=== PATIENT | female | born 1980 | race Caucasian/White ===

== ENCOUNTER → 2017-04-03 | Outpatient (CLI) | payer OTHER | LOC: M SMT 15:39 | PROVIDERS: ATTEND Advanced Practice Midwife | DX: Z13.79 Encounter for other screening for genetic and chromosomal anomalies (principal) ==

== ENCOUNTER → 2017-04-12 | Outpatient (CLI) | payer OTHER | LOC: M LAB 16:29 | PROVIDERS: ATTEND Advanced Practice Midwife | DX: Z13.79 Encounter for other screening for genetic and chromosomal anomalies (principal) ==

== ENCOUNTER → 2017-04-14 | Outpatient (CLI) | payer OTHER ==
--- NOTE | 2017-04-14 15:17 | REP ---
Clinical: Anatomical evaluation. Comparison: None . Findings: Examination demonstrates a single live intrauterine in transverse (head to maternal left) presentation. motion is identified by technologist. Placenta is noted anteriorly and grade zero with evidence for placenta. Amniotic fluid volume is normal. Cervix measures 4.0 cm in length and appears closed. No evidence for nuchal cord. Gestational age by LMP 19 weeks 0 days with JAE 09/08/2017 . Gestational age by current measurements 18 weeks 1 day with JAE 09/14/2017 . FHR equals 144 beats per minute. BPD 4.2 cm 18 weeks 4 days HC 15.0 cm 18 weeks 1 day AC 12.3 cm 18 weeks 0 days FL 2.7 cm 18 weeks 1 day HL 2.6 cm 18 weeks 1 day HC/AC ratio 1.22 Estimated weight 224 grams ( 16th percentile). Anatomical assessment demonstrates normal structures including cranium, cavum, cerebellum/posterior fossa, facial features, lungs, four-chamber heart/ventricular outflow tracts, diaphragm, stomach, cord insertion/three-vessel cord, kidneys/bladder, and upper extremities. Limited evaluation of the spine and lower extremities due to positioning. Small choroid plexus cysts. Impression: 1. Single live intrauterine in oblique presentation. 2. Anterior placenta with placenta previa noted. 3. Limited evaluation of the spine and lower extremities along with small choroid plexus cysts may warrant reevaluation and follow-up. Signed by Tony Ocasio MD 04/14/2017 03:09 P
== END ==
LOC: M SMT 13:18 → EDUNIT# 13:30
PROVIDERS: ATTEND Advanced Practice Midwife
DX: O09.512 Supervision of elderly primigravida, second trimester (principal); Z3A.18 18 weeks gestation of pregnancy

== ENCOUNTER → 2017-05-16 | Outpatient (CLI) | payer OTHER ==
--- NOTE | 2017-05-16 15:39 | REP ---
Clinical: Anatomical evaluation. Comparison: 04/14/2017 . Findings: Examination demonstrates a single live intrauterine in breech presentation. motion is identified by technologist. Placenta is noted anteriorly and grade zero and again demonstrates complete placenta previa. Amniotic fluid volume is normal. Cervix measures 3.6 cm in length and appears closed. No evidence for nuchal cord. Gestational age by LMP 23 weeks 4 days with JAE 09/08/2017 . Gestational age by current measurements 22 weeks 0 days with JAE 09/19/2017 . FHR equals 150 beats per minute. Estimated weight 476 grams ( 4th percentile by LMP/first US ). Anatomical assessment demonstrates normal structures including cranium, choroid plexus, cavum, cerebellum/posterior fossa, facial features, lungs, diaphragm, stomach, cord insertion/three-vessel cord, kidneys/bladder, spine, and extremities. Previously noted choroid plexus cysts have resolved. Impression: 1. Estimated weight by current examination at the 4th percentile may warrant followup. 2. Continued evidence for complete placenta previa. 3. In conjunction with prior examination anatomical assessment is complete and normal. Previously noted choroid plexus cysts have resolved. Signed by Tony Ocasio MD 05/16/2017 03:30 P
== END ==
LOC: M SMT 14:15
PROVIDERS: ATTEND Advanced Practice Midwife
DX: O09.512 Supervision of elderly primigravida, second trimester (principal)

== ENCOUNTER → 2017-05-17 | Outpatient (CLI) | payer OTHER ==
--- NOTE | 2017-05-17 17:15 | REP ---
Obstetric sonography: History: Supervision of growth. Cord Doppler. Size less than dates. Findings: Scanning through the gravid uterus demonstrates a viable single intrauterine gestation in a transverse lie, head to the maternal left. motion is observed and heart rate is recorded at 144 beats per minute. Anterior grade zero placenta is seen without evidence of previa or abruption. Amniotic fluid is subjectively normal. Closed cervical length is 4.1 cm. No extrauterine abnormalities observed. There has been appropriate interval growth. The following anatomic structures are identified again and felt to be unremarkable: cranium, choroid plexus, cavum, diaphragm, left-sided stomach, kidneys and bladder. Biometry chart: BPD 5.5 cm 22-week 6 days Head circumference 20.1 cm 22 weeks 1 day Abdominal circumference 17.1 cm 22 weeks 0 days Femur length 3.9 cm 22 weeks 3 days Humeral length 3.7 cm 22-week 6 days Cerebellar diameter 2.5 cm 23 weeks 0 days HC/AC ratio normal 1.17. Cephalic index normal 0.77 estimated weight 487 grams 1 pound 1 ounce 5th percentile for 23 weeks 5 days. Impression: Viable single intrauterine gestation at 22 weeks 1 day by today's composite criteria. Expected gestational age estimate based on prior sonography is 23 weeks 5 days. JAE by prior sonography 09/08/2017. Estimated weight in the 5th percentile for 23 weeks 5 days. Signed by Emanuel Lindsey MD 05/17/2017 08:26 P
== END ==
LOC: M SMT 14:45
PROVIDERS: ATTEND Advanced Practice Midwife
DX: Z36 Encounter for antenatal screening of mother (principal)